=== PATIENT | female | born 1970 | race Caucasian/White ===

== ENCOUNTER 2018-03-26 14:19 | Outpatient (CLI) | payer MEDICARE, MEDICAID ==
[2016-05-04 09:42] VITALS: O2SAT 98
== END 2018-03-26 14:20 | disposition home or self-care (01) | DRG 561 ==
LOC: CONVCARE 14:19
PROVIDERS: ATTEND Orthopaedic Surgery
DX: S82.832D Other fracture of upper and lower end of left fibula, subsequent encounter for closed fracture with routine healing (principal); Z51.89 Encounter for other specified aftercare
CPT/HCPCS: 73610

== ENCOUNTER 2018-05-14 10:27 | Outpatient (CLI) | payer MEDICARE, MEDICAID ==
[2016-05-04 09:42] VITALS: O2SAT 98
== END 2018-05-14 10:28 | disposition home or self-care (01) | DRG 561 ==
LOC: CONVCARE 10:27
PROVIDERS: ATTEND Orthopaedic Surgery
DX: S82.65XD Nondisplaced fracture of lateral malleolus of left fibula, subsequent encounter for closed fracture with routine healing (principal)
CPT/HCPCS: 73610

== ENCOUNTER 2019-03-10 09:35 | Emergency (ER) | payer MEDICARE, MEDICAID ==
[2019-03-10 09:54] VITALS: RESP 20
[2019-03-10] MEDS: KETOROLAC TROMETHAMINE 30 MG/ML SOL IV ONE (10:09)
[2019-03-10] MEDS: ONDANSETRON HCL 4 MG/2 ML SOL IV ONE (10:09)
[2019-03-10] MEDS: SODIUM CHLORIDE 0.9% 1000ML 1,000 ML IV ONE (10:09)
[2019-03-10] MEDS ORDERED: KETOROLAC TROMETHAMINE 30 MG/ML SOL ONE (10:21)
[2019-03-10] MEDS ORDERED: ONDANSETRON HCL 4 MG/2 ML SOL ONE (10:21)
[2019-03-10 10:28] LABS: HEMATOCRIT 45 % (35-47); MEAN CORPUSCULAR HEMOGLOBIN 30.2 pg (27.0-32.0); MEAN CORPUSCULAR HGB CONC 31.1 gm/dl (32.0-36.0); MEAN CORPUSCULAR VOLUME 97 fL (81-99)
[2019-03-10 10:31] LABS: ALBUMIN 3.4 gm/dl (3.4-5.0); BILIRUBIN,TOTAL 0.5 mg/dl (0.2-1.0); CALCIUM 8.7 mg/dl (8.5-10.1); CARBON DIOXIDE 32.4 mEq/L (21-32); CREATININE 1.4 mg/dl (0.60-1.00); POTASSIUM 3.9 mMol/L (3.5-5.1); TOTAL PROTEIN 8.1 gm/dl (6.4-8.2)
[2019-03-10 10:57] LABS: BAND NEUTROPHILS % (MANUAL) 2 %; BASOPHILS % (MANUAL) 0 % (0-3); EOSINOPHILS % (MANUAL) 2 % (0-9); LYMPHOCYTES % (MANUAL) 6 % (10-50); MONOCYTES % (MANUAL) 8 % (0-12); NEUTROPHILS % (MANUAL) 82 % (37-80); NORMAL RBCS PRESENT
[2019-03-10 12:41] LABS: APPEARANCE,URINE Clear; BILIRUBIN,URINE NEGATIVE (NEGATIVE); COLOR,URINE Yellow; GLUCOSE, URINE (UA) NEGATIVE (NEGATIVE); KETONES,URINE NEGATIVE (NEGATIVE); NITRATE,URINE NEGATIVE (NEGATIVE); OCCULT BLOOD,URINE NEGATIVE (NEG-TRACE); PH,URINE 5.5; UROBILINOGEN,URINE 0.2 (0.2-1.0 EU)
[2019-03-10 12:49] VITALS: TEMP 97.8
[2019-03-10 12:50] LABS: LEUKOCYTE ESTERASE ,URINE NEGATIVE (NEGATIVE)
[2019-03-10 14:29] VITALS: BP 119/85; PULSE 67; O2SAT 95
== END 2019-03-10 14:15 | disposition home or self-care (01) | DRG 392 ==
LOC: ED 09:35
DX: R11.2 Nausea with vomiting, unspecified (principal); K52.9 Noninfective gastroenteritis and colitis, unspecified
CPT/HCPCS: 74177; 80053; 81003; 85007; 85027; 87088; 96365; 96374; 96375; 99283; 99285; J1885; J2405; Q9967